=== PATIENT | female | born 1935 | race Caucasian/White ===

== ENCOUNTER 2017-09-25 10:09 | Outpatient (CLI) | payer MEDICARE, BC | END 2017-09-25 10:10 | disposition home or self-care (01) | LOC: BICMAMMO 10:09 | PROVIDERS: ATTEND Internal Medicine | DX: Z12.31 Encounter for screening mammogram for malignant neoplasm of breast (principal); Z80.3 Family history of malignant neoplasm of breast | CPT/HCPCS: 77063 ==

== ENCOUNTER 2018-09-28 07:48 | Outpatient (CLI) | payer MEDICARE, BC | END 2018-09-28 07:49 | disposition home or self-care (01) | LOC: BICMAMMO 07:48 | PROVIDERS: ATTEND Internal Medicine | DX: Z12.31 Encounter for screening mammogram for malignant neoplasm of breast (principal); Z80.3 Family history of malignant neoplasm of breast | CPT/HCPCS: 77063; 77067 ==

== ENCOUNTER 2018-11-02 10:00 | Day surgery (SDC) | payer MEDICARE, BC ==
[2018-11-01 13:53] VITALS: BMI 28.2
[2018-11-02] MEDS ORDERED: Bupivacaine HCl 0.5%/Epinephrine 1:200,000/PF 30 ml Vial ONE (13:05)
[2018-11-02] MEDS ORDERED: Sodium Chloride 0.9% 10 ML ONE (13:06)
[2018-11-02] MEDS ORDERED: Propofol 500 MG/50 ML VIAL ONE (13:11)
[2018-11-02] MEDS ORDERED: KETAMINE 100 MG/ML (5ML VIAL) ONE (13:11)
[2018-11-02] MEDS ORDERED: Fentanyl 100 MCG/2 ML VIAL ONE (13:11)
[2018-11-02] MEDS ORDERED: ePHEDrine/0.9% NaCl/PF SYRINGE 50 mg/10 ml ONE (14:26)
[2018-11-02] MEDS ORDERED: PROPOFOL 200 MG/20 ML VIAL ONE (14:26)
[2018-11-02] MEDS ORDERED: PHENYLEPHRINE-NS 100 MCG/ML 10 ML SYRINGE ONE (14:26)
--- NOTE | 2018-11-02 22:08 | OP ---
DATE OF PROCEDURE: 11/02/2018 PREOPERATIVE DIAGNOSES: 1. Postlaminectomy syndrome. 2. Nonfunctioning spinal cord stimulation system. PROCEDURES PERFORMED: 1. Explant of IPG. 2. Explant of right and left spinal cord stimulation electrode leads with extensions and anchors. 3. Fluoroscopic guidance. ANESTHESIA: TIVA. COMPLICATIONS: None. ESTIMATED BLOOD LOSS: Less than 10 mL. DESCRIPTION OF PROCEDURE: Risks and benefits were discussed. Informed consent was obtained. She was taken to the OR and prepped and draped in standard fashion. Fluoroscopic guidance was used to identify the lead anchors. Adequate local anesthesia with 0.5% Marcaine and 1% lidocaine with epinephrine mixed 50:50. Incision was carried out over the IPG using the Metzenbaum for blunt dissection, IPG was easily exposed and then removed from the pocket. The leads were then ligated with hemostat, securing the leads in place. Attention was then turned to the midline incision. After adequate local anesthesia, incision was carried down with blunt dissection to the lead anchors. Each anchor was sutured and placed with two 2-0 silks. These were ligated and removed, freeing the anchors. The spinal cord stimulation electrode arrays were easily removed from the spinal canal and the leads were easily removed from the tunnel, both right and left side, completing the explant. The explant included the IPG, two lead anchors, two leads, and two extensions with connections. There were no complications prior to closure. All counts were correct x2. Closure was accomplished with interrupted 2-0 Vicryl in layers and the skin was closed with a running subcuticular 3-0 Rapide. Mastisol, Steri-Strips, 4x4s, and Medipore tape were used for dressing. There were no complications. Job ID: [id number]
== END 2018-11-02 15:15 | disposition home or self-care (01) ==
LOC: SDC 10:00
PROVIDERS: ATTEND Anesthesiology Pain Medicine
PROC: 00PU3MZ Removal of Neurostimulator Lead from Spinal Canal, Percutaneous Approach (ICD-10-PCS; principal; 2018-11-02)
PROC: 0JPT0MZ Removal of Stimulator Generator from Trunk Subcutaneous Tissue and Fascia, Open Approach (ICD-10-PCS; 2018-11-02)
DX: T85.113A Breakdown (mechanical) of implanted electronic neurostimulator, generator, initial encounter (principal); T85.112A Breakdown (mechanical) of implanted electronic neurostimulator of spinal cord electrode (lead), initial encounter; M96.1 Postlaminectomy syndrome, not elsewhere classified; M47.816 Spondylosis without myelopathy or radiculopathy, lumbar region; G90.522 Complex regional pain syndrome I of left lower limb; E89.0 Postprocedural hypothyroidism; Z79.899 Other long term (current) drug therapy; Z79.82 Long term (current) use of aspirin; Z88.5 Allergy status to narcotic agent; Z96.652 Presence of left artificial knee joint; Z98.890 Other specified postprocedural states
CPT/HCPCS: 76000; J0670; J2704; J3010; J3490

== ENCOUNTER 2019-05-17 14:27 | Outpatient (CLI) | payer MEDICARE, BC ==
--- NOTE | 2019-05-17 15:42 | RAD ---
THREE VIEWS LUMBAR SPINE: 05/17/19 HISTORY: Low back pain. History of back surgery. COMPARISON: None. FINDINGS: There are postsurgical changes related to posterior fusion of the lumbar spine with bipedicular screw s and posterior rods transfixing L2-3, L3-4, L4-5, and L5-S1 levels. No hardware complication is seen . Laminectomy defects are present at these levels. Scattered degenerative changes are seen in the lum bar spine, and there is narrowing of the intervertebral disc spaces at T12-L1 and L1-L2 levels with e nd plate degenerative changes noted at these levels. No fracture or subluxation is identified. Vascul ar calcifications are seen in the abdominal aorta and involving the iliac arteries. IMPRESSION: 1. Postoperative changes related to posterior fusion of the L2 through S1 levels. No hardware co mplication is seen. 2. Degenerative changes in the lumbar spine as well as lower thoracic spine. POS: VASU
--- NOTE | 2019-05-17 16:06 | RAD ---
THREE VIEWS OF THE THORACIC SPINE 05/17/19 COMPARISON: None. HISTORY: Back pain. FINDINGS: Three views of the thoracic spine shows normal height and alignment of the thoracic vertebral bodies and intervertebral discs without fracture or subluxation. Hardware is seen at the thoracolumbar junct ion. The intervertebral discs are narrowed throughout the thoracic spine. Small osteophytes are seen. IMPRESSION: Mild degenerative changes of the thoracic spine without acute osseous abnormality. POS: CET
== END 2019-05-17 14:28 | disposition home or self-care (01) ==
LOC: TBSIIMAG 14:27
PROVIDERS: ATTEND Neurological Surgery
DX: M54.5 Low back pain (principal); M47.814 Spondylosis without myelopathy or radiculopathy, thoracic region; M47.815 Spondylosis without myelopathy or radiculopathy, thoracolumbar region; M47.816 Spondylosis without myelopathy or radiculopathy, lumbar region; Z98.1 Arthrodesis status
CPT/HCPCS: 72070; 72100

== ENCOUNTER 2023-09-12 09:41 | Emergency (ER) | payer OTHER, MEDICARE | END 2023-09-12 12:31 | disposition home or self-care (01) | LOC: ERS 09:41 | DX: Z04.3 Encounter for examination and observation following other accident (principal); I10 Essential (primary) hypertension; E78.5 Hyperlipidemia, unspecified; Z79.899 Other long term (current) drug therapy; Z79.82 Long term (current) use of aspirin; W10.9XXA Fall (on) (from) unspecified stairs and steps, initial encounter; Y93.01 Activity, walking, marching and hiking | CPT/HCPCS: 71045 ==

== ENCOUNTER 2023-09-20 23:24 | Inpatient (IN) | payer MEDICARE ==
[~2023-09-20 23:24] MED LIST: Iopamidol 370 76% 100 ML VIAL ONE
[2023-09-21 00:58] LABS: #Eosinphils 0.1 thou/uL (0.0-0.7); #Monocytes 0.9 thou/uL (0.11-0.59); #Neutrophils 7.4 thou/uL (1.40-6.50); %Basophils 0.3 % (0.0-1.0); %Lymphocytes 8.9 % (21.0-51.0); %Monocytes 9.7 % (0.0-10.0); %Neutrophils 79.9 % (42.0-75.0); Hematocrit 37.8 % (36.0-47.0); Hemoglobin 13.1 g/dL (12.0-16.0); Mean Corpuscular HGB CONC 34.7 g/dL (32.0-36.0); Mean Corpuscular Hemoglobin 32.3 pg (27.0-31.0); Mean Corpuscular Volume 93.1 fl (78.0-98.0); Mean Platelet Volume 10.9 fL (7.4-10.4); Platelet Count 208 10x3/uL (130-400); RBC Distribution Width 13.5 % (11.5-14.5); Red Blood Cell (RBC) Count 4.06 mill/uL (4.20-5.40); White Blood Cell (WBC) Count 9.2 10x3/uL (4.8-10.8)
[2023-09-21 01:26] LABS: SARS-CoV-2 NAA Rapid Test Not Detected (NotDetected)
[2023-09-21 01:28] LABS: ALT (SGPT) 15 U/L (8-55); AST (SGOT) 18 U/L (5-34); Albumin 3.4 g/dL (3.4-4.8); Alkaline Phosphatase 76 U/L (40-110); Anion Gap 15 mmol/L (10-20); BUN (Urea Nitrogen) 24 mg/dL (9.8-20.1); Bilirubin, Total 0.9 mg/dL (0.2-1.2); Calc. Creatinine Clearance 0 mL/min (70-130); Carbon Dioxide 28 mmol/L (23-31); Chloride 94 mmol/L (98-107); Estimated GFR 30; Globulin 3.2 g/dL (2.4-3.5); Glucose 136 mg/dL (83-110); Magnesium 1.7 mg/dL (1.6-2.6); Protein, Total 6.6 g/dL (5.8-8.1); Sodium 135 mmol/L (136-145)
[2023-09-21 01:29] LABS: Troponin I 0.028 ng/mL (< 0.028)
[2023-09-21 01:32] LABS: Potassium 2.4 mmol/L (3.5-5.1)
[2023-09-21] MEDS ORDERED: Potassium Chloride 20 MEQ TAB ONE ×2 (02:10→12:49)
[2023-09-21 03:26] LABS: T4 6.22 ug/dL (4.87-11.72)
[2023-09-21 04:31] LABS: Lactic Acid 1.6 mmol/L (0.5-2.2)
[2023-09-21] MEDS ORDERED: Acetaminophen 325 MG TAB PO PRN (04:56)
[2023-09-21] MEDS ORDERED: Magnesium 2 GM/50 ML(in water) 2 GM in Premix 1 BAG IVPB SCH (05:30)
[2023-09-21] MEDS: Lactated Ringer's 1,000 ML IV SCH ×3 (05:52→23:43)
[2023-09-21] MEDS ORDERED: Magnesium 2 GM/50 ML BAG (IN WATER) ONE (05:54)
[2023-09-21 06:24] LABS: Bacteria/HPF None Seen HPF (None Seen); Bilirubin Negative (Negative); Blood, Urine Negative (Negative); Clarity Clear (Clear); Glucose, Urine (Dipstick) Normal (Negative); Ketone, Urine Negative (Negative); Leukocyte 250 Leu/uL (Negative); Nitrite Negative (Negative); Protein, Urine (Dipstick) Negative (Neg-Trace); RBC/HPF 0-3 HPF (0-3); Specific Gravity, Urine 1.043 (1.002-1.036); Squamous Epithelial 0-3 HPF (0-3); Urobilinogen Normal mg/dL (Less than 2); WBC/HPF 21-50 HPF (0-3); pH, Urine 5.5 (5.0-9.0)
[2023-09-21] MEDS ORDERED: Electrolyte Replacement Protocol 1 EACH FS SCH (07:27)
[2023-09-21] MEDS: Levothyroxine Sodium 112 MCG TAB PO SCH (07:43)
[2023-09-21] MEDS ORDERED: Clopidogrel Bisulfate 75 MG TAB ONE (09:10)
[2023-09-21] MEDS ORDERED: Atorvastatin Calcium 40 MG TAB ONE (09:10)
[2023-09-21] MEDS ORDERED: Losartan 25 MG TAB ONE (09:10)
[2023-09-21] MEDS ORDERED: Aspirin Chewable 81 MG TAB ONE (09:11)
[2023-09-21] MEDS ORDERED: Famotidine 20 MG TAB ONE (09:11)
[2023-09-21] MEDS: Rivastigmine 9.5mg/24 Hour PATCH TD SCH (10:01)
[2023-09-21] MEDS: Losartan 25 MG TAB PO SCH (10:01)
[2023-09-21] MEDS: Atorvastatin Calcium 40 MG TAB PO SCH (10:01)
[2023-09-21] MEDS: Clopidogrel Bisulfate 75 MG TAB PO SCH (10:01)
[2023-09-21] MEDS: Escitalopram Oxalate 10 mg Tablet PO SCH (10:01)
[2023-09-21] MEDS: Cholecalciferol 1,000 UNITS (25 MCG) TAB PO SCH (10:01)
[2023-09-21] MEDS: Aspirin Chewable 81 MG TAB PO SCH (10:01)
[2023-09-21] MEDS: Famotidine 20 MG TAB PO SCH ×2 (10:01→21:22)
[2023-09-21] MEDS: Cyanocobalamin (Vitamin B-12) 1,000 MCG TAB PO SCH (10:01)
[2023-09-21 10:59] LABS: Anion Gap 15 mmol/L (10-20); BUN (Urea Nitrogen) 18 mg/dL (9.8-20.1); Calc. Creatinine Clearance 50 mL/min (70-130); Calcium 8.8 mg/dL (7.8-10.44); Carbon Dioxide 28 mmol/L (23-31); Chloride 95 mmol/L (98-107); Estimated GFR 44; Glucose 136 mg/dL (83-110); Magnesium 2.4 mg/dL (1.6-2.6); Sodium 135 mmol/L (136-145)
[2023-09-21 11:05] LABS: Potassium 2.5 mmol/L (3.5-5.1)
[2023-09-21] MEDS ORDERED: Potassium Chloride 20 MEQ TAB PO SCH (11:30)
[2023-09-21 17:36] VITALS: BMI 35.2
[2023-09-21] MEDS: Potassium Chloride 20 MEQ TAB PO SCH (18:14)
[2023-09-21 18:48] LABS: BUN (Urea Nitrogen) 17 mg/dL (9.8-20.1); Calc. Creatinine Clearance 56 mL/min (70-130); Calcium 8.7 mg/dL (7.8-10.44); Carbon Dioxide 25 mmol/L (23-31); Chloride 97 mmol/L (98-107); Estimated GFR 45; Glucose 102 mg/dL (83-110); Sodium 135 mmol/L (136-145)
[2023-09-21 19:45] LABS: Anion Gap 16 mmol/L (10-20)
[2023-09-21] MEDS ORDERED: hydrOXYzine 10 MG TAB PO SCH (23:00)
[2023-09-22 04:15] LABS: #Eosinphils 0.2 thou/uL (0.0-0.7); #Monocytes 0.8 thou/uL (0.11-0.59); #Neutrophils 5.4 thou/uL (1.40-6.50); %Basophils 0.3 % (0.0-1.0); %Eosinophils 2.7 % (0.0-10.0); %Lymphocytes 10.2 % (21.0-51.0); %Monocytes 10.9 % (0.0-10.0); %Neutrophils 75.6 % (42.0-75.0); Hematocrit 31.8 % (36.0-47.0); Hemoglobin 10.9 g/dL (12.0-16.0); Mean Corpuscular HGB CONC 34.3 g/dL (32.0-36.0); Mean Corpuscular Hemoglobin 32.2 pg (27.0-31.0); Mean Corpuscular Volume 93.8 fl (78.0-98.0); Mean Platelet Volume 10.9 fL (7.4-10.4); Platelet Count 175 10x3/uL (130-400); RBC Distribution Width 13.9 % (11.5-14.5); Red Blood Cell (RBC) Count 3.39 mill/uL (4.20-5.40); White Blood Cell (WBC) Count 7.2 10x3/uL (4.8-10.8)
[2023-09-22 04:46] LABS: Anion Gap 13 mmol/L (10-20); BUN (Urea Nitrogen) 14 mg/dL (9.8-20.1); Calc. Creatinine Clearance 62 mL/min (70-130); Calcium 8.4 mg/dL (7.8-10.44); Carbon Dioxide 28 mmol/L (23-31); Chloride 100 mmol/L (98-107); Estimated GFR 53; Glucose 110 mg/dL (83-110); Magnesium 2.1 mg/dL (1.6-2.6); Sodium 138 mmol/L (136-145)
[2023-09-22] MEDS: Levothyroxine Sodium 112 MCG TAB PO SCH (05:30)
[2023-09-22] MEDS ORDERED: Potassium Chloride 20 MEQ TAB PO SCH (08:00)
[2023-09-22] MEDS: Rivastigmine 9.5mg/24 Hour PATCH TD SCH (09:44)
[2023-09-22] MEDS: Potassium Chloride 20 MEQ TAB PO SCH ×2 (09:45→17:18)
[2023-09-22] MEDS: Aspirin Chewable 81 MG TAB PO SCH (15:22)
[2023-09-22] MEDS: Cholecalciferol 1,000 UNITS (25 MCG) TAB PO SCH (15:22)
[2023-09-22] MEDS: Cyanocobalamin (Vitamin B-12) 1,000 MCG TAB PO SCH (15:22)
[2023-09-22] MEDS: Famotidine 20 MG TAB PO SCH ×2 (15:23→21:58)
[2023-09-22] MEDS ORDERED: Lactated Ringer's 1,000 ML IV SCH (17:15)
[2023-09-22] MEDS: Atorvastatin Calcium 40 MG TAB PO SCH (17:18)
[2023-09-22] MEDS: Losartan 25 MG TAB PO SCH (17:18)
[2023-09-22] MEDS: Clopidogrel Bisulfate 75 MG TAB PO SCH (17:18)
[2023-09-22] MEDS: Escitalopram Oxalate 10 mg Tablet PO SCH (17:18)
[2023-09-23 06:23] LABS: Bacteria/HPF None Seen HPF (None Seen); Bilirubin Negative (Negative); Blood, Urine Negative (Negative); CAUTI Indications for Culture Alt mental st,lethar; Clarity Clear (Clear); Glucose, Urine (Dipstick) Normal (Negative); Ketone, Urine Negative (Negative); Leukocyte Negative Leu/uL (Negative); Nitrite Negative (Negative); Protein, Urine (Dipstick) Negative (Neg-Trace); RBC/HPF 0-3 HPF (0-3); Specific Gravity, Urine 1.017 (1.002-1.036); Squamous Epithelial None Seen HPF (0-3); WBC/HPF 0-3 HPF (0-3); pH, Urine 7.5 (5.0-9.0)
[2023-09-23] MEDS: Levothyroxine Sodium 112 MCG TAB PO SCH (06:27)
[2023-09-23 06:29] LABS: Urine Culture Reflex No No
[2023-09-23 07:26] LABS: Hematocrit 34.3 % (36.0-47.0); Hemoglobin 11.5 g/dL (12.0-16.0); Mean Corpuscular HGB CONC 33.5 g/dL (32.0-36.0); Mean Corpuscular Hemoglobin 32.7 pg (27.0-31.0); Mean Corpuscular Volume 97.4 fl (78.0-98.0); Mean Platelet Volume 10.1 fL (7.4-10.4); Platelet Count 187 10x3/uL (130-400); RBC Distribution Width 14.4 % (11.5-14.5); Red Blood Cell (RBC) Count 3.52 mill/uL (4.20-5.40); White Blood Cell (WBC) Count 7.2 10x3/uL (4.8-10.8)
[2023-09-23 07:48] LABS: Anion Gap 12 mmol/L (10-20); BUN (Urea Nitrogen) 11 mg/dL (9.8-20.1); Calc. Creatinine Clearance 65 mL/min (70-130); Calcium 8.4 mg/dL (7.8-10.44); Carbon Dioxide 29 mmol/L (23-31); Chloride 101 mmol/L (98-107); Estimated GFR 56; Glucose 99 mg/dL (83-110); Magnesium 2.2 mg/dL (1.6-2.6); Sodium 138 mmol/L (136-145)
[2023-09-23] MEDS: Cyanocobalamin (Vitamin B-12) 1,000 MCG TAB PO SCH (08:38)
[2023-09-23] MEDS: Escitalopram Oxalate 10 mg Tablet PO SCH (08:38)
[2023-09-23] MEDS: Atorvastatin Calcium 40 MG TAB PO SCH (08:38)
[2023-09-23] MEDS: Potassium Chloride 20 MEQ TAB PO SCH ×2 (08:38→18:06)
[2023-09-23] MEDS: Clopidogrel Bisulfate 75 MG TAB PO SCH (08:38)
[2023-09-23] MEDS: Aspirin Chewable 81 MG TAB PO SCH (08:38)
[2023-09-23] MEDS: Rivastigmine 9.5mg/24 Hour PATCH TD SCH (08:38)
[2023-09-23] MEDS: Cholecalciferol 1,000 UNITS (25 MCG) TAB PO SCH (08:39)
[2023-09-23] MEDS: Losartan 25 MG TAB PO SCH (08:39)
[2023-09-23] MEDS: Famotidine 20 MG TAB PO SCH (20:05)
[2023-09-24] MEDS: Levothyroxine Sodium 112 MCG TAB PO SCH (05:56)
[2023-09-24 06:17] LABS: Hematocrit 35.3 % (36.0-47.0); Hemoglobin 11.6 g/dL (12.0-16.0); Mean Corpuscular HGB CONC 32.9 g/dL (32.0-36.0); Mean Corpuscular Hemoglobin 32.1 pg (27.0-31.0); Mean Corpuscular Volume 97.8 fl (78.0-98.0); Mean Platelet Volume 10.1 fL (7.4-10.4); Platelet Count 197 10x3/uL (130-400); RBC Distribution Width 14.1 % (11.5-14.5); Red Blood Cell (RBC) Count 3.61 mill/uL (4.20-5.40); White Blood Cell (WBC) Count 7.2 10x3/uL (4.8-10.8)
[2023-09-24 06:29] LABS: Anion Gap 12 mmol/L (10-20); BUN (Urea Nitrogen) 12 mg/dL (9.8-20.1); Calc. Creatinine Clearance 71 mL/min (70-130); Calcium 8.3 mg/dL (7.8-10.44); Carbon Dioxide 24 mmol/L (23-31); Chloride 104 mmol/L (98-107); Estimated GFR 62; Glucose 109 mg/dL (83-110); Potassium 4.5 mmol/L (3.5-5.1); Sodium 135 mmol/L (136-145)
[2023-09-24 08:21] VITALS: BP 148/82; TEMP 98.6
[2023-09-24] MEDS: Clopidogrel Bisulfate 75 MG TAB PO SCH (08:59)
[2023-09-24] MEDS: Atorvastatin Calcium 40 MG TAB PO SCH (08:59)
[2023-09-24] MEDS: Losartan 25 MG TAB PO SCH (08:59)
[2023-09-24] MEDS ORDERED: FLU VACC QS2023(65UP)/MF59C/PF 60 MCG/0.5 ML SYRINGE IM ONE (09:00)
[2023-09-24] MEDS: Potassium Chloride 20 MEQ TAB PO SCH (09:02)
[2023-09-24] MEDS: Cholecalciferol 1,000 UNITS (25 MCG) TAB PO SCH (09:02)
[2023-09-24] MEDS: Aspirin Chewable 81 MG TAB PO SCH (09:02)
[2023-09-24] MEDS: Escitalopram Oxalate 10 mg Tablet PO SCH (09:02)
[2023-09-24] MEDS: Cyanocobalamin (Vitamin B-12) 1,000 MCG TAB PO SCH (09:02)
[2023-09-24] MEDS ORDERED: Hydrochlorothiazide 25 MG TAB PO SCH (09:30)
[2023-09-24] MEDS: Rivastigmine 9.5mg/24 Hour PATCH TD SCH (09:56)
[2023-09-25] MEDS ORDERED: Non-Formulary Item 1 EACH (Hydrochlorothiazide [Hydrochlorothiazide] 12.5 MG Tablet) PO SCH (09:00)
[2023-09-25] MEDS ORDERED: Hydrochlorothiazide 25 MG TAB PO SCH (09:00)
== END 2023-09-24 13:16 | DRG 683 ==
LOC: ERS 23:24 → ERHOLD 09-21 03:11 → 2NO 09-21 16:09 → T4-B 09-23 19:55
PROVIDERS: ADMIT Student in an Organized Health Care Education/Training Program; ATTEND Student in an Organized Health Care Education/Training Program
DX: N17.9 Acute kidney failure, unspecified (principal); E87.20 Acidosis, unspecified; J98.11 Atelectasis; F03.90 Unspecified dementia, unspecified severity, without behavioral disturbance, psychotic disturbance, mood disturbance, and anxiety; I10 Essential (primary) hypertension; E78.5 Hyperlipidemia, unspecified; E03.9 Hypothyroidism, unspecified; F32.9 Major depressive disorder, single episode, unspecified; E87.6 Hypokalemia; E83.42 Hypomagnesemia; R53.81 Other malaise; Z88.5 Allergy status to narcotic agent; Z88.8 Allergy status to other drugs, medicaments and biological substances; Z79.899 Other long term (current) drug therapy; Z91.81 History of falling; Z11.52 Encounter for screening for COVID-19
CPT/HCPCS: 36415; 36416; 70450; 71045; 71260; 72125; 74177; 80048; 80053; 81001; 83605; 83735; 83880; 84436; 84439; 84443; 84481; 84484; 85025; 85027; 93005; J3475; J7120; Q9967